=== PATIENT | male | born 1970 | race Caucasian/White ===

== ENCOUNTER 2022-11-04 12:56 | Emergency (ER) | payer OTHER ==
[~2022-11-04] VITALS: Ht 190.5 cm; Wt 89.5 kg
[~2022-11-04 12:56] MED LIST: ONDA4TAB6 PO
[2022-11-04] MEDS ORDERED: acetaminophen 325mg tablet PO ONE (13:05)
[2022-11-04 13:32] LABS: BASOPHILS % (AUTO) 0.2 % (0-1); EOSINOPHILS % (AUTO) 0.1 % (0-6); HEMATOCRIT 46.9 % (42.0-52.0); HEMOGLOBIN 15.5 g/dl (14.0-17.9); LYMPHOCYTES # (AUTO) 0.9 X10'3 (1.1-4.8); LYMPHOCYTES % (AUTO) 7.5 % (21-51); MEAN CORPUSCULAR HEMOGLOBIN 30.7 PG (27.0-31.0); MEAN CORPUSCULAR HGB CONC 33.1 g/dL (33.0-36.5); MEAN CORPUSCULAR VOLUME 92.6 FL (78-98); MEAN PLATELET VOLUME 10.6 FL (7.4-10.4); MONOCYTES # (AUTO) 0.8 X10'3 (0-0.9); MONOCYTES % (AUTO) 6.8 % (2-12); NEUTROPHILS # (AUTO) 10.4 X10'3 (1.8-7.7); NEUTROPHILS % (AUTO) 85.4 % (42-75); PLATELET COUNT 129 X10'3 (140-440); RED BLOOD COUNT 5.07 X10'6 (4.70-6.10); RED CELL DISTRIBUTION WIDTH 13.5 % (11.5-14.5); WHITE BLOOD COUNT 12.1 X10'3 (4.5-11.0)
[2022-11-04 13:54] LABS: ALANINE AMINOTRANSFERASE 25 U/L (12-78); ALBUMIN 3.5 G/DL (3.4-5.0); ALBUMIN/GLOBULIN RATIO 0.7 (1.1-1.5); ALKALINE PHOSPHATASE 80 IU/L (46-116); ANION GAP 11 (8-16); ASPARTATE AMINO TRANSFERASE 18 U/L (10-37); BILIRUBIN,TOTAL 0.7 MG/DL (0.1-1.0); BLOOD UREA NITROGEN 22 MG/DL (7-18); BUN/CREATININE RATIO 16.7 (5.4-32.0); CALCIUM 8.8 MG/DL (8.5-10.1); CHLORIDE 98 MMOL/L (99-107); CREATININE 1.32 MG/DL (0.60-1.10); GLUCOSE 124 MG/DL (70-104); POTASSIUM 3.2 MMOL/L (3.5-5.1); SODIUM 135 MMOL/L (135-145); TOTAL CARBON DIOXIDE 26.4 MMOL/L (24-32); TOTAL PROTEIN 8.7 G/DL (6.4-8.2); eGFR 57 ML/MIN
[2022-11-04 14:18] VITALS: BP 99/62
[2022-11-04] MEDS ORDERED: normal saline 1000ml 1,000 ML IV ONE (14:30)
[2022-11-04] MEDS ORDERED: ketorolac trometh. 30mg/ml inj. IV ONE (14:40)
[2022-11-04] MEDS ORDERED: CIPR-202 PO (17:29)
[2022-11-04] MEDS ORDERED: ciprofloxacin 250mg tablet PO ONE (17:30)
== END 2022-11-04 19:04 | disposition home or self-care (01) ==
LOC: ER 12:57
DX: R50.9 Fever, unspecified (principal); Z20.822 Contact with and (suspected) exposure to COVID-19; R05.9 Cough, unspecified; M79.10 Myalgia, unspecified site; Z79.899 Other long term (current) drug therapy
CPT/HCPCS: 36415; 71046; 80053; 83605; 83880; 84145; 85025; 87040; 87502; 87503; 87635; 96360; 96361; 99284; C9803; J7030